=== PATIENT | male | born 1950 | race Caucasian/White ===

== ENCOUNTER → 2018-04-19 | Outpatient (CLI) | payer OTHER | LOC: COL.RAD 15:39 | DX: M19.031 Primary osteoarthritis, right wrist (principal); M25.421 Effusion, right elbow; W19.XXXD Unspecified fall, subsequent encounter ==

== ENCOUNTER → 2018-04-24 | Outpatient (REF) ==
[2018-04-24 17:11] LABS: COLLECTION METHOD CLEAN CATCH
[2018-04-24 17:23] LABS: BASO % 0.2 % (0.0-2.0); GRAN # 5.9 (1.4-6.5); GRAN % 70.1 % (42.2-75.2); LYMPH # 1.2 (1.2-3.4); LYMPH % 13.8 % (20.0-51.0); MEAN CELL VOLUME 100 fl (80.0-100.0); MEAN CORPUSCULAR HGB CONC 33 g/dl (33.0-37.0); MONO # 1.3 (0.1-0.6); MONO % 15.7 % (1.7-9.3); PH 5 (5-8); PLATELET COUNT 435 K/mm3 (130-400); RED BLOOD COUNT 3.01 M/mm3 (4.20-5.60); REDCELL DISTRIBUTION WIDTH-CV 14.1 % (11.5-14.5); SQUAMOUS EPITHELIAL None Seen /hpf; URINE APPEARANCE Clear; URINE BACTERIA None Seen /hpf; URINE BILIRUBIN Negative (NEGATIVE); URINE BLOOD Negative (NEGATIVE); URINE COLOR Yellow; URINE GLUCOSE Negative (NEGATIVE); URINE KETONE Negative (NEGATIVE); URINE LEUKOCYTE ESTERASE Negative (NEGATIVE); URINE NITRATE Negative (NEGATIVE); URINE PROTEIN(semi-quant) Negative (NEGATIVE); URINE RBC 0-2 /hpf; URINE UROBILINOGEN >=4.0 mg/dL (NEGATIVE); URINE WBC 0-2 /hpf
[2018-04-24 17:27] LABS: HEMATOCRIT 30.1 % (42.0-52.0); HEMOGLOBIN 9.9 g/dl (13.5-18.0); MEAN CORPUSCULAR HEMOGLOBIN 33 pg (27.0-31.0)
[2018-04-24 17:30] LABS: CALCIUM 9.3 mg/dL (8.4-10.2); CREATININE, serum 1.47 mg/dL (0.66-1.25)
[2018-04-24 17:36] LABS: POTASSIUM 6.2 mmol/L (3.4-5.0)
== END ==
LOC: ZLAB.STJ 17:10
PROVIDERS: Nurse Practitioner
DX: N39.0 Urinary tract infection, site not specified (principal); R78.81 Bacteremia; R79.89 Other specified abnormal findings of blood chemistry; R68.89 Other general symptoms and signs

== ENCOUNTER → 2018-04-25 | Outpatient (REF) ==
[~2018-04-25] MED LIST: ATIVAN 0.50.5 MG/TAB PO; CELEXA40 MG PO; DAZIDOX10 MG PO; FIBER0.52 GM PO; FISH OIL 1000MG1 CAP PO; FLOMAX 0.40.4 MG/CAP PO; GLUCOPHAGE500 MG/TAB PO; HUMIRA40 MG/0.8 SQ; KIONEX15 GM/60 M PO; LIORESAL 1010 MG/TAB PO; LOVENOX 4040 MG/0.4 SQ; MELATONIN5 M1 PO; MIRALAX PA17 GM/Dose PO; MULTI VITAMINS1 TAB PO; NATURAL E400 IU PO; NEURONTIN300 MG/CAP PO; PRILOSEC 20MG20 MG PO; TYLENOL 325MG325 MG PO; ZESTRIL 10MG10 MG PO
[2018-04-25 09:47] LABS: BASO % 0.3 % (0.0-2.0); GRAN # 4.6 (1.4-6.5); GRAN % 63.8 % (42.2-75.2); LYMPH # 1.2 (1.2-3.4); LYMPH % 16.8 % (20.0-51.0); MEAN CELL VOLUME 101 fl (80.0-100.0); MEAN CORPUSCULAR HGB CONC 32 g/dl (33.0-37.0); MEAN PLATELET VOLUME 10.8 fl (7.4-10.4); MONO # 1.4 (0.1-0.6); MONO % 18.8 % (1.7-9.3); PLATELET COUNT 363 K/mm3 (130-400); RED BLOOD COUNT 2.72 M/mm3 (4.20-5.60)
[2018-04-25 09:49] LABS: HEMATOCRIT 27.4 % (42.0-52.0); HEMOGLOBIN 8.8 g/dl (13.5-18.0); MEAN CORPUSCULAR HEMOGLOBIN 32 pg (27.0-31.0)
[2018-04-25 16:18] LABS: CREATININE, serum 1.48 mg/dL (0.66-1.25)
[2018-04-25 16:25] LABS: POTASSIUM 5.8 mmol/L (3.4-5.0)
== END ==
LOC: ZLAB.STJ 09:32
PROVIDERS: Internal Medicine
DX: R79.89 Other specified abnormal findings of blood chemistry (principal); R68.89 Other general symptoms and signs

== ENCOUNTER → 2018-04-26 | Outpatient (REF) ==
[2018-04-26 12:13] LABS: CALCIUM 8.6 mg/dL (8.4-10.2); CREATININE, serum 1.31 mg/dL (0.66-1.25); POTASSIUM 5.2 mmol/L (3.4-5.0)
== END ==
LOC: ZLAB.STJ 12:03
PROVIDERS: Nurse Practitioner
DX: R79.89 Other specified abnormal findings of blood chemistry (principal)

== ENCOUNTER 2018-04-28 14:28 | Observation (INO) | payer OTHER ==
[~2018-04-28] VITALS: Ht 177.8 cm; Wt 118.3 kg
[2018-04-28] MEDS ORDERED: LOVENOX 4040 MG/0.4 SQ (15:58)
[2018-04-28] MEDS ORDERED: MULTI VITAMINS1 TAB PO (15:59)
[2018-04-28] MEDS ORDERED: HUMIRA40 MG/0.8 SQ (15:59)
[2018-04-28] MEDS ORDERED: FLOMAX 0.40.4 MG/CAP PO (16:00)
[2018-04-28] MEDS ORDERED: FISH OIL 1000MG1 CAP PO (16:00)
[2018-04-28] MEDS ORDERED: NATURAL E400 IU PO (16:01)
[2018-04-28] MEDS ORDERED: FIBER0.52 GM PO (16:01)
[2018-04-28] MEDS ORDERED: ZESTRIL 10MG10 MG PO (16:02)
[2018-04-28] MEDS ORDERED: GLUCOPHAGE500 MG/TAB PO ×2 (16:02→16:04)
[2018-04-28] MEDS ORDERED: MIRALAX PA17 GM/Dose PO (16:03)
[2018-04-28] MEDS ORDERED: DAZIDOX10 MG PO ×2 (16:03→16:14)
[2018-04-28] MEDS ORDERED: KIONEX15 GM/60 M PO (16:05)
[2018-04-28 16:06] LABS: BASO % 0.2 % (0.0-2.0); GRAN % 70.9 % (42.2-75.2); LYMPH # 1.3 (1.2-3.4); LYMPH % 12.7 % (20.0-51.0); MEAN CELL VOLUME 99 fl (80.0-100.0); MEAN CORPUSCULAR HGB CONC 33 g/dl (33.0-37.0); MEAN PLATELET VOLUME 10.6 fl (7.4-10.4); MONO # 1.6 (0.1-0.6); MONO % 15.8 % (1.7-9.3); PLATELET COUNT 318 K/mm3 (130-400); RED BLOOD COUNT 2.82 M/mm3 (4.20-5.60); REDCELL DISTRIBUTION WIDTH-CV 13.3 % (11.5-14.5)
[2018-04-28 16:08] LABS: HEMOGLOBIN 9.2 g/dl (13.5-18.0); MEAN CORPUSCULAR HEMOGLOBIN 33 pg (27.0-31.0)
[2018-04-28] MEDS ORDERED: LIORESAL 1010 MG/TAB PO (16:09)
[2018-04-28] MEDS ORDERED: CELEXA40 MG PO (16:10)
[2018-04-28] MEDS ORDERED: PRILOSEC 20MG20 MG PO (16:10)
[2018-04-28] MEDS ORDERED: ATIVAN 0.50.5 MG/TAB PO ×2 (16:10→21:14)
[2018-04-28 16:12] LABS: COLLECTION METHOD CLEAN CATCH
[2018-04-28] MEDS ORDERED: MELATONIN5 M1 PO (16:13)
[2018-04-28] MEDS ORDERED: TYLENOL 325MG325 MG PO (16:15)
[2018-04-28 16:21] LABS: BILIRUBIN,TOTAL 0.5 mg/dL (0.0-1.0); C-REACTIVE PROTEIN 4.1 mg/dL (0.0-0.9); CALCIUM 8.9 mg/dL (8.4-10.2); CREATININE, serum 1.26 mg/dL (0.66-1.25); MAGNESIUM 1.7 mg/dL (1.6-2.3); TOTAL PROTEIN 7.7 gm/dL (6.4-8.2)
[2018-04-28 16:22] LABS: POTASSIUM 5.9 mmol/L (3.4-5.0)
[2018-04-28 16:27] LABS: MUCOUS Present /lpf; PH 6 (5-8); SQUAMOUS EPITHELIAL None Seen /hpf; URINE APPEARANCE Clear; URINE BACTERIA None Seen /hpf; URINE BILIRUBIN Negative (NEGATIVE); URINE BLOOD Negative (NEGATIVE); URINE COLOR Yellow; URINE GLUCOSE Negative (NEGATIVE); URINE KETONE Negative (NEGATIVE); URINE LEUKOCYTE ESTERASE Negative (NEGATIVE); URINE NITRATE Negative (NEGATIVE); URINE PROTEIN(semi-quant) Negative (NEGATIVE); URINE RBC 0-2 /hpf; URINE UROBILINOGEN >=4.0 mg/dL (NEGATIVE)
[2018-04-28 20:15] VITALS: BP 164/90; PULSE 117; TEMP 99.9
[2018-04-29 00:30] VITALS: PULSE 92
[2018-04-29 02:53] VITALS: BP 130/59; PULSE 89; TEMP 97.8
[2018-04-29 06:25] LABS: MEAN CELL VOLUME 98 fl (80.0-100.0); MEAN CORPUSCULAR HGB CONC 33 g/dl (33.0-37.0); MEAN PLATELET VOLUME 10.3 fl (7.4-10.4); PLATELET COUNT 285 K/mm3 (130-400); RED BLOOD COUNT 2.79 M/mm3 (4.20-5.60); REDCELL DISTRIBUTION WIDTH-CV 13.3 % (11.5-14.5)
[2018-04-29 06:29] LABS: HEMATOCRIT 27.4 % (42.0-52.0); HEMOGLOBIN 8.9 g/dl (13.5-18.0); MEAN CORPUSCULAR HEMOGLOBIN 32 pg (27.0-31.0)
[2018-04-29 06:36] LABS: CALCIUM 8.7 mg/dL (8.4-10.2); CREATININE, serum 1.29 mg/dL (0.66-1.25); POTASSIUM 4.7 mmol/L (3.4-5.0)
[2018-04-29 07:42] VITALS: BP 148/75; PULSE 81; TEMP 98.4
[2018-04-29 07:48] LABS: BAND 9 % (0-10); LYMPHOCYTE 19 % (20.0-51.0); NEUTROPHILS 63 % (42.0-75.2); PLATELET ESTIMATE NORMAL (NORMAL)
[2018-04-29 11:52] VITALS: BP 156/80; PULSE 77; TEMP 99.8
[2018-04-29 14:11] VITALS: BP 156/80; PULSE 77; TEMP 99.8
[2018-04-29] MEDS ORDERED: NEURONTIN300 MG/CAP PO (14:18)
== END 2018-04-29 15:24 ==
LOC: COL.ER 14:28 → MEDICAL 18:39
PROVIDERS: Family Medicine; Nurse Practitioner
DX: N28.9 Disorder of kidney and ureter, unspecified (principal); E87.5 Hyperkalemia; M79.672 Pain in left foot; M79.671 Pain in right foot; E11.8 Type 2 diabetes mellitus with unspecified complications; Z79.84 Long term (current) use of oral hypoglycemic drugs; M06.9 Rheumatoid arthritis, unspecified; L40.50 Arthropathic psoriasis, unspecified; E66.9 Obesity, unspecified; N40.0 Benign prostatic hyperplasia without lower urinary tract symptoms; Z79.01 Long term (current) use of anticoagulants; Z79.899 Other long term (current) drug therapy; Z80.0 Family history of malignant neoplasm of digestive organs; Z80.2 Family history of malignant neoplasm of other respiratory and intrathoracic organs
CPT/HCPCS: G0378; G8978-GP; G8979-GP; J1170; J1200; J1630; J1644; J7030; Q9967

== ENCOUNTER → 2018-05-02 | Outpatient (REF) ==
[2018-05-02 09:56] LABS: BASO % 0.4 % (0.0-2.0); EOS % 0.1 % (0-4.0); GRAN # 4.5 (1.4-6.5); GRAN % 59.7 % (42.2-75.2); LYMPH % 25.9 % (20.0-51.0); MEAN CELL VOLUME 99 fl (80.0-100.0); MEAN CORPUSCULAR HGB CONC 32 g/dl (33.0-37.0); MEAN PLATELET VOLUME 10.9 fl (7.4-10.4); MONO % 13.5 % (1.7-9.3); PLATELET COUNT 272 K/mm3 (130-400); RED BLOOD COUNT 2.59 M/mm3 (4.20-5.60); REDCELL DISTRIBUTION WIDTH-CV 13.6 % (11.5-14.5)
[2018-05-02 09:57] LABS: HEMATOCRIT 25.5 % (42.0-52.0); HEMOGLOBIN 8.2 g/dl (13.5-18.0); MEAN CORPUSCULAR HEMOGLOBIN 32 pg (27.0-31.0)
[2018-05-02 10:11] LABS: CALCIUM 8.7 mg/dL (8.4-10.2); CREATININE, serum 1.47 mg/dL (0.66-1.25); POTASSIUM 5.1 mmol/L (3.4-5.0)
== END ==
LOC: ZLAB.STJ 09:43
PROVIDERS: Internal Medicine
DX: R79.89 Other specified abnormal findings of blood chemistry (principal); R68.89 Other general symptoms and signs